=== PATIENT | male | born 1970 | race Caucasian/White ===

== ENCOUNTER 2024-12-07 17:07 | Emergency (ER) | payer BC, SELFPAY ==
[2024-12-07 17:13] VITALS: BP 151/105
[2024-12-07 17:29] LABS: % Basophils 0.6 % (0-2); % Eosinophils 1.7 % (0-6); % Immature Granulocytes 0.3 % (0-0.5); % Lymphocytes 12.4 % (20.5-51.1); % Monocytes 6.6 % (1.7-9.3); % Neutrophils 78.4 % (42.2-75.2); Absolute Basophils 0.1 10^3/uL (0-0.2); Absolute Eosinophils 0.2 10^3/uL (0-0.7); Absolute Lymphocytes 1.4 10^3/uL (1.2-3.4); Absolute Monocytes 0.8 10^3/uL (0.1-0.6); Hematocrit 46.5 % (39.0-52.0); Hemoglobin 16.2 g/dL (13.0-18.0); Mean Corp Hgb Conc. 34.8 g/dL (33.0-37.0); Mean Corpuscular Hgb 31.4 pg (27.0-31.0); Mean Corpuscular Volume 90.1 fL (80.0-94.0); Mean Platelet Volume 9.8 fL (7.4-10.4); Nucleated Red Blood Cells % 0 % (-); Platelet Count 244 10^3/uL (130-400); Red Blood Cell Count 5.16 10^6/uL (4.70-6.10); White Blood Cell Count 11.5 10^3/uL (4.8-10.8)
[2024-12-07 17:49] LABS: ALT (SGPT) 44 U/L (0-50); AST (SGOT) 31 U/L (17-59); Albumin 5.4 g/dl (3.5-5.0); Alkaline Phosphatase 69 U/L (38-126); Blood Urea Nitrogen 23 mg/dl (9-20); Carbon Dioxide 23 mmol/L (22-30); Chloride 108 mmol/L (98-107); Glucose 87 mg/dl (70-99); Potassium 4.4 mmol/L (3.5-5.1); Sodium 142 mmol/L (135-145); Total Bilirubin 1.1 mg/dl (0.2-1.3); Total Protein 8.2 g/dl (6.3-8.2); eGFR > 60.00
[2024-12-07 17:51] LABS: Troponin I < 0.012 ng/ml
--- NOTE | 2024-12-07 19:34 | ED.GENMED ---
History of Present Illness
General
Chief Complaint: Chest Pain
Source: patient
Exam Limitations: none
Time Seen by Provider: 12/07/24 19:29
History of Present Illness
History of Present Illness:
See MDM
Past History
Past History
ED Past Medical History: Other (Pericarditis)
ED Past Surgical History: None
Social History
Tobacco: Non-smoker
Personal:
Phy Exam
Physical Exam
Physical Exam:
See MDM
Scores
Heart Score for Chest Pain Patients
STEMI patient?: No
History: Slightly or Non-Suspicious
ECG: Normal
Age: >45 - <65 years
Risk Factors: 1 or 2 Risk Factors
Troponin: </= Normal Limit
Heart Score for Chest Pain Patients: 2
Heart Score Risk: 2.5% MACE over next 6 weeks
Course
Orders/Labs/Results
Orders:
Orders
12/07/24 17:08
EKG [Electrocardiogram (*1)] Urgent
Reason for Study: Chest Pain
EKG- Treatment ONCE
12/07/24 17:18
Complete Blood Count/With Diff Urgent
Comprehensive Metabolic Panel Urgent
Troponin I Urgent
12/07/24 19:34
Colchicine 0.6 mg PO NOW STA
Abnormal Lab Results
12/07/24
17:18
WBC 11.5 H 10^3/uL
(4.8-10.8)
MCH 31.4 H pg
(27.0-31.0)
Absolute Neuts (auto) 9.0 H 10^3/uL
(1.4-6.5)
Absolute Monos (auto) 0.8 H 10^3/uL
(0.1-0.6)
Neutrophils % 78.4 H %
(42.2-75.2)
Lymphocytes % 12.4 L %
(20.5-51.1)
Chloride 108 H mmol/L
(98-107)
BUN 23 H mg/dl
(9-20)
Albumin 5.4 H g/dl
(3.5-5.0)
12/07/24 17:18
12/07/24 17:18
Vital Signs
Initial and Last Documented VS:
Initial Vital Signs
Temp Pulse Resp BP Pulse Ox
98.5 F 90 16 151/105 100
12/07/24 17:13 12/07/24 17:13 12/07/24 17:13 12/07/24 17:13 12/07/24 17:13
Last Documented Vital Signs
Temp Pulse Resp BP Pulse Ox
98.5 F 90 16 151/105 100
12/07/24 17:13 12/07/24 17:13 12/07/24 17:13 12/07/24 17:13 12/07/24 17:13
MDM/Problems Addressed
Differential Diagnosis Includes:
HPI and MDM Narrative:
54-year-old male presenting with concern for pericarditis. He developed sudden onset of chest pain at 1 PM. Patient does have a long history of pericarditis. He did not have his colchicine with him. He takes colchicine on an as-needed basis. He
has had follow-up with car repairer helper in the past. Since 1:00, patient has noted a chest pain that is worse when he lays flat. Symptoms are somewhat improved when he leans forward.
Blood work and EKG done prior to my assessment. Troponin negative. EKG nonischemic. Given normal troponin with constant symptoms, doubt ACS. Symptoms also do not appear to be exertional.
I did suggest obtaining a chest x-ray. Patient states he feels comfortable with colchicine discharge. He is aware that we could be missing alternative diagnosis. However, will err on the side of colchicine given his prior history and his current
Physical exam
General: Well appearing and non-toxic
HEENT: protecting airway
Neck: appears supple
CV: No evidence of cyanosis. Regular rate and rhythm
Resp: No accessory muscle use. Lungs clear
Abd: Non-distended
Extremities: No deformities
Neuro: alert
Psych: Normal affect
Skin: Intact
Problems Addressed including Acute and Chronic Conditions affecting care:
1. Chest pain
Acuity: acute
Prognosis: stable
Details: Given that it is worse when he lays flat, will start colchicine for presumed pericarditis. EKG and troponin negative
Differential Diagnosis (but not limited to): Pericarditis, pericardial effusion, esophageal
Testing considered: Chest x-ray
Drug therapy (if applicable): OTC meds, please see d/c instruction regarding Rx drugs
Amount and/or Complexity of Data Reviewed
Clinical info obtained from: Patient
External data reviewed: N/A
Labs I independently reviewed (but not limited to): Troponin negative
Radiology: N/A
Pulse Ox: not hypoxic
EKG independently reviewed: Sinus rhythm, normal axis, no STEMI
Editing Clerk: N/A
Critical Care: N/A
Risk of Complication:
Social Determinants of health: Good social support
Discussed with other providers: N/A
Escalation of Care includes Admit/Obs: After being observed in the Emergency Department, pt stable for discharge.
Occasional wrong word or 'sound a like' substitutions may have occurred due to the inherent limitations of voice recognition software. Read the chart carefully and recognize, using context, where substitutions have occurred.
*Critical Care Note
Total Time (30-74mins, 75-104mins- exclusive of procedures): Not Applicable
ED Attending Note
-
Portions of this chart may have been created with voice recognition software.� Occasional wrong word or��sound alike� substitutions may have occurred due to the inherent limitations of voice recognition software.
Discharge Plan
Departure
Patient Disposition: Home (Routine Discharge)
Date of Disposition: 12/07/24
Time of Disposition: 19:35
Patient with high blood pressure during this ER visit?: Yes
Discharge Problem:
Pericarditis
Instructions: Pericarditis in adults, BLOOD PRESSURE
Prescriptions:
New
colchicine 0.6 mg tablet
0.6 mg PO BID Qty: 14 0RF
No Action
tramadol 50 MG tablet
50 mg PO Q6HPRN PRN (Reason: pain)
colchicine 0.6 MG tablet
0.6 mg PO DAILY
prednisone 10 MG tablet
10 mg PO .TAPER Qty: 45 0RF
Rx Instructions:
Take 50mg daily x3days, 40mg daily x3days,
30mg daily x3days, 20mg daily x3days,
10mg daily x3days
Referrals:
Ferny Jones DO [Family Provider, Internal Medicine]
Activity Restrictions/Additional Instructions:
Please return for any worsening symptoms.
You may return at any time if you have further concerns.
Please follow up with your doctor at the first available appointment, preferably this week.
Please make an appointment to see your car repairer helper on the first available appointment.
Thank you for choosing [facility].
Interventions
Interventions:
*Risk Screen - Suicide Last Done: 12/07/24 17:14
*Neglect/Abuse Screening Last Done: 12/07/24 17:14
Discharge Date and Time
Print Language: MALTESE
[2024-12-07] MEDS: COLCHICINE 0.6 MG PO (19:47)
[2024-12-07 19:48] VITALS: BP 133/90
== END 2024-12-07 19:51 | disposition home or self-care (01) ==
LOC: EMR 17:07
PROVIDERS: Emergency Medicine; EMERGENCY PHYSICIAN Student in an Organized Health Care Education/Training Program; FAMILY PHYSICIAN Internal Medicine
DX: I31.9 Disease of pericardium, unspecified (principal); R03.0 Elevated blood-pressure reading, without diagnosis of hypertension
CPT/HCPCS: 99283; 80053; 84484; 85025; 93005